=== PATIENT | female | born 1970 | race Caucasian/White ===

== ENCOUNTER 2016-12-06 05:50 | Day surgery (SDC) | payer OTHER ==
[~2016-12-06] VITALS: Ht 157.5 cm; Wt 74.4 kg
[2016-12-06 06:13] VITALS: O2SAT 99
[2016-12-06] MEDS ORDERED: SEVOFLURANE 15 MIN GAS INH ONE (07:30)
[2016-12-06] MEDS ORDERED: CEFAZOLIN 1 GM IVPB PREMIX 50 ML IV ONE (07:30)
[2016-12-06] MEDS ORDERED: MIDAZOLAM HCL 5 MG/5 ML VIAL IVP ONE (07:30)
[2016-12-06] MEDS ORDERED: PROPOFOL 200MG/ 20ML VIAL (DIPRIVAN) IV ONE (07:30)
[2016-12-06] MEDS ORDERED: fentaNYL CITRATE 250 MCG/5 ML AMP IV ONE (07:30)
[2016-12-06] MEDS ORDERED: GLYCOPYRROLATE 0.2 MG/ML VIAL IJ ONE (07:30)
[2016-12-06] MEDS ORDERED: BUPIVACAINE /EPINEPHRINE/PF 0.5% 30 ML VIAL INJ ONE (07:30)
[2016-12-06] MEDS ORDERED: ONDANSETRON HCL 4 MG/2 ML VIAL IVP ONE (07:30)
[2016-12-06] MEDS ORDERED: ROCURONIUM BROMIDE 10 MG/ML (ZEMURON) IV ONE (07:30)
[2016-12-06] MEDS ORDERED: LR 1,000 ML IV.SOLN IV ONE (07:30)
[2016-12-06] MEDS ORDERED: NS IRRIG SOLN 1000 ML IR ONE (07:30)
[2016-12-06] MEDS ORDERED: KETOROLAC TROMETHAMINE 30 MG VIAL IVP ONE (07:30)
[2016-12-06] MEDS ORDERED: LR 1,000 ML IV SCH (09:18)
[2016-12-06] MEDS ORDERED: MORPHINE 2 MG/ML INJ. SYRINGE IVP PRN ×3 (09:30)
[2016-12-06] MEDS ORDERED: MIDAZOLAM HCL 5 MG/5 ML VIAL IVP PRN (09:30)
[2016-12-06] MEDS ORDERED: ONDANSETRON HCL 4 MG/2 ML VIAL IVP PRN (10:15)
[2016-12-06] MEDS ORDERED: OXYCODONE/ACETAMINOPHEN 5-325 TABLET PO PRN (10:15)
[2016-12-06] MEDS ORDERED: HYDROmorphone 2 MG TAB PO PRN (10:15)
[2016-12-06] MEDS ORDERED: PROMETHAZINE HCL 25 MG/ML AMP IM PRN (10:15)
[2016-12-06 11:22] VITALS: BP 127/87; PULSE 72; RESP 16
[2016-12-06] MEDS ORDERED: OXYCODONE/ACETAMINOPHEN 5-325 TABLET ONE (11:50)
== END 2016-12-06 14:40 | disposition home or self-care (01) ==
LOC: SDS 05:50 → SMU 05:50 → SDS 14:40
PROVIDERS: ATTEND Obstetrics & Gynecology
DX: D25.9 Leiomyoma of uterus, unspecified (principal); N83.202 Unspecified ovarian cyst, left side; E03.9 Hypothyroidism, unspecified; D64.9 Anemia, unspecified
CPT/HCPCS: 36415; 57000; 58571; 86886; 86900; 86901; 88307; C1727; J0690; J1885; J2250; J2405; J2704; J3010; J3490 ×2; J7120; E0190